=== PATIENT | male | born 1950 | race Caucasian/White ===

== ENCOUNTER 2016-11-15 10:00 | Day surgery (SDC) | payer MEDICARE, OTHER ==
[~2016-11-15] VITALS: Ht 177.8 cm; Wt 95.0 kg
[~2016-11-15 10:00] MED LIST: 0.9% Sodium Chloride 1,000 ML IV SCH; AMOX-366 PO; ASPI-628 PO; BIMA2.5D5 OD; KTC2C15 TP; Sodium Chloride LOK Flush 10 mL Syringe IV PRN; TADA5TAB2 PO; fentaNYL-PF 50 mCg/mL 2 mL Inj IVPUSH PRN
[2016-11-15 10:37] VITALS: BP 141/83; PULSE 53; RESP 17; O2SAT 97
[2016-11-15] MEDS ORDERED: LISI10TA PO (10:37)
[2016-11-15 11:34] VITALS: BP 141/95; PULSE 54; RESP 16; O2SAT 97
[2016-11-15 11:45] VITALS: BP 125/77; PULSE 57; RESP 14; O2SAT 97
[2016-11-15 11:50] VITALS: BP 126/75; PULSE 59; RESP 16; O2SAT 96
--- NOTE | 2016-11-15 22:32 | ENDO ---
[address] [address] ENDOSCOPY PROCEDURE PATIENT: CHRIS BERNARD : 1950 MR#: [id number] ADMIT: 11/15/2016 JOB ID: [id number] DATE OF PROCEDURE: 11/15/2016 PRIMARY PROVIDER: Marciano Saucedo MD PROCEDURE: Colonoscopy with hot snare polypectomy and cold snare polypectomy. INDICATIONS: A 65-year-old male with a personal history of colon polyps returning for surveillance. EQUIPMENT: [employer]-H180AL. SEDATION: 1. Versed 2 mg. 2. Fentanyl 50 mcg. COMPLICATIONS: None identified. BOWEL PREPARATION: Fair. PROCEDURE INFORMATION: After the risks and benefits were explained, written and verbal informed consent was obtained. The patient was brought into the endoscopy suite and placed into the left lateral decubitus position. Sedation was achieved as above. A digital rectal examination was accomplished. Moderate internal hemorrhoids were noted. The scope was introduced into the rectum and advanced under direct visualization to the level of the cecum, as identified by the appendiceal orifice and ileocecal valve. The scope was slowly withdrawn to carefully examine the mucosa for any defects or lesions. Retroflexed views were avoided in the rectum. Multiple direct views were made through the dentate line for exclusion of pathology. The colon was decompressed. The scope was removed from the patient who tolerated the procedure well. FINDINGS: In the cecum there was an approximately 5-6 mm sessile polyp near the appendiceal orifice removed with hot snare. In the mid colon there was a diminutive polyp removed with cold snare. No other significant pathology was appreciated throughout. ENDOSCOPIC DIAGNOSES: 1. Colon polyps. 2. Moderately engorged internal hemorrhoids. RECOMMENDATIONS: 1. Await histopathology. 2. Repeat colonoscopy in five years.
--- NOTE | 2016-11-19 10:08 | PATH ---
SURGICAL PATHOLOGY Attending Physician:Renato Virgen CASE STATUS: Signed Out PATIENT NAME: MASSIMO BERNARD JR PID: [id number] : 1950 DATE COLLECTED:11/15/2016 20:24 SPECIMEN: 1: Colon, Biopsy 2: Colon, Biopsy CLINICAL HISTORY: 1). CECAL POLYP 2). COLON POLYP FINAL DIAGNOSIS: 1.CECAL POLYP: SESSILE SERRATED ADENOMA. 2.COLON POLYP: TUBULAR ADENOMA. ICD10 CODE D12.0 GROSS DESCRIPTION: The specimen is received in two formalin filled containers labeled with the patient's name. 1). The specimen is sublabeled "cecal polyp" and consists of 3 portions of tissue which aggregate to 0.3 x 0.3 x 0.3 CM. The specimen is entirely submitted in cassette 1A. 2). The specimen is sublabeled "colon polyp" and consists of a 0.3 x 0.2 x 0.2 CM portion of tissue which is entirely submitted in cassette 2A. 11/15/2016 DAC MICRO DESCRIPTION: See diagnosis. ICD-9 CODES: CPT CODES: 1: 33656 2: 93878 Electronically Signed Out Massimo Pacheco MD [facility] [address], [place] [address] Technical component performed at [facility], [address] [place] [address] Ave[address], [place], [address]
== END 2016-11-15 23:59 | disposition home or self-care (01) ==
LOC: END 10:00
PROVIDERS: ATTEND Internal Medicine Gastroenterology
DX: Z12.11 Encounter for screening for malignant neoplasm of colon (principal); Z86.010 Personal history of colon polyps; D12.0 Benign neoplasm of cecum; D12.6 Benign neoplasm of colon, unspecified; K64.8 Other hemorrhoids
CPT/HCPCS: 45385; 88305; 99153; G0500; J2250; J3010; J7030